=== PATIENT | female | born 1970 | race Caucasian/White ===

== ENCOUNTER 2020-11-24 10:54 | Emergency (ER) | payer OTHER, SELFPAY ==
[2020-11-24 10:55] VITALS: BP 171/84; PULSE 63; RESP 14; TEMP 36.5; O2SAT 99; BMI 22.3
--- NOTE | 2020-11-24 10:59 | ED_ITS ---
HPI - Extremity Injury (Upper) General Chief Complaint: Extremity Injury, Upper Stated Complaint: right hand crush injury Time Seen by Provider: 11/24/20 10:56 Source: patient and family Mode of arrival: Ambulatory Limitations: no limitations History of Present Illness HPI narrative: 49-year-old female nonsmoker with noncontributory medical history presents with a chief complaint of an accidental injury to her right index finger just prior to arrival. She was lowering a physical therapy table when her finger was caught in the closing mechanisms and crossed for approximately 10 minutes. She has decreased range of motion secondary to pain and some tingling on the distal tip of her finger which is improving since her injury. She denies any other injury and is otherwise well and free of complaint. She has increased pain with range of motion and improvement with rest. MD complaint: injury to: right and finger Onset (ago): minute(s) Other Extremity Injury: Right: fingers Other injuries: none Handedness: right Place: work Severity: mild Relieving factors: rest Exacerbating factors: movement of extremity Context: crush Associated symptoms: denies other symptoms Related Data Home Medications Medication Instructions Recorded Confirmed ALBUTEROL SULFATE (Ventolin / 0 ml INH * [place] DOSE/FREQUENCY #0 10/09/06 07/28/19 Proventil) FLUTIC/SALMET 500/50 MCG (Advair 0 INH * [place] DOSE/FREQUENCY #0 10/09/06 07/28/19 500-50 Diskus) Montelukast Sodium (Singulair) 0 PO * [place] DOSE/FREQUENCY #0 10/09/06 07/28/19 Previous Rx's Medication Instructions Recorded albuterol sulfate 90 mcg/actuation 2 puff INHALATION Q4-6H PRN #8 gram 07/28/19 aerosol inhaler fluticasone propionate 44 2 puff INHALATION BID #10.6 gram 07/28/19 mcg/actuation HFA aerosol inhaler Allergies Allergy/AdvReac Type Severity Reaction Status Date / Time shellfish derived Allergy Severe Anaphylaxis Verified 11/24/20 11:05 NSAIDS (Non-Steroidal Allergy Intermediate Wheezing Verified 11/24/20 11:05 Anti-Inflamma Review of Systems Constitutional Constitutional: Denies chills, Denies fatigue, Denies fever(s), Denies frequent falls, Denies lethargy and Denies weakness Eyes Eyes: Denies change in vision, Denies eye discharge, Denies irritation and Denies loss of vision ENT Ears, Nose, Mouth, and Throat: Denies change in voice, Denies dizziness, Denies neck pain, Denies sore throat and Denies throat swelling Cardiovascular Cardiovascular: Denies chest pain, Denies irregular heart rhythm, Denies lightheadedness, Denies palpitations, Denies dyspnea, Denies dyspnea on exertion and Denies orthopnea Respiratory Respiratory: Denies cough, Denies dyspnea, Denies dyspnea on exertion and Denies wheezing Gastrointestinal Gastrointestinal: Denies abdominal pain, Denies change in bowel habits, Denies diarrhea, Denies nausea and Denies vomiting Musculoskeletal Musculoskeletal: Reports arthralgias, Reports joint swelling, Denies neck pain and Denies numbness Integumentary/Breasts Skin/Breast: Denies pruritus, Denies erythema, Denies rash and Denies wounds Neurologic Neurologic: Denies behavioral changes, Denies confusion, Denies dizziness, Denies frequent falls, Denies loss of vision, Denies numbness and Denies weakness Psychiatric Psychiatric: Denies anxiety, Denies behavioral changes, Denies confusion, Denies depression, Denies homicidal ideation and Denies suicidal ideation Endocrine Endocrine: Denies fatigue, Denies flushing and Denies palpitations Hematologic/Lymphatic Hematologic/Lymphatic: Denies easy bruising Allergic/Immunologic Allergic/Immunologic: Denies urticaria, Denies throat swelling and Denies wheezing Patient History Social History Smoking Status: Never smoker Smoking Status: Never smoker Exam Narrative Exam Narrative: GEN: AOx3 and in mild distress EYES: Pupils are equal, round, and reactive to light and accommodation. Extraoccular muscles are intact bilaterally. There is no subconjunctival hemorrhage or exudate. CHEST: Lungs are clear to auscultation bilaterally and free of wheezes, rales, or rhonchi. Heart rate is regular rhythm, there are no murmurs, clicks, rubs, or gallops. There is no chest wall tenderness. ABD: Abdomen is soft and nontender. There is no guarding or rebound. Bowel sounds are normal in all 4 quadrants. There is no mass or organomegaly. EXT: Decreased range of motion of right index finger secondary to pain. There is swelling at the PIP. Cap refill less than 2 seconds, sensation intact but slightly decreased, no obvious deformity SKIN: Warm, pink, and dry. No erythema or rash Initial Vital Signs Initial Vital Signs: Vital Signs Temperature 97.7 F 11/24/20 10:55 Pulse Rate 63 11/24/20 10:55 Respiratory Rate 14 11/24/20 10:55 Blood Pressure 171/84 H 11/24/20 10:55 Pulse Oximetry 99 11/24/20 10:55 Procedures Orthopedic Splinting/Casting Injury #1: Side: right Upper Extremity Injury Location: finger Upper Extremity Immobilizer: aluminum form splint Post splinting neuro exam: intact Post splinting vascular exam: intact Placed by: Nursing Course Orders Ordered: ED Orders 11/24/20 11:05 XR finger RT min 2V Stat Vital Signs Vital signs: Vital Signs - 8 hr 11/24/20 10:55 Temperature 97.7 F Pulse Rate 63 Respiratory Rate 14 Blood Pressure 171/84 H Pulse Oximetry 99 MDM - Extremity Injury (Upper) Imaging Data Extremity x-ray #1: Radiologist's Impression: Chart Viewer Diagnostics DATE TYPE STATUS REF RANGE/AUTHOR Hx Today 11:05 Nirav SheehanKhushbu owusuJennifer M 49, F1970 [facility], Main ED 162.56cm 58.967kg BMI: 22.3kg/m? Extremity Injury, Upper Search Chart No Data to Display NonFormulary Not Included in Conflicts Anaphylaxis Wheezing ONSET Today 10:55 Jennifer Rendon 49 F [address] [id number] ReportSigned Patient: Jennifer Rendon MMR#: [id number]: 1970Acct:[id number]/Sex: 49 / FDate of Service: 11/24/20Loc: EDAccession Number: [id number] Procedure: XR finger RT min 2V Ordering Provider: Michael Harris D.O. PROCEDURE: XR FINGER RT MIN 2V INDICATIONS: finger crush injury TECHNIQUE: AP hand, 2 views of the 2nd finger(s) acquired. COMPARISON: None. FINDINGS: Bones: No fractures or dislocations. No suspicious bony lesions. Soft tissues: No suspicious soft tissue calcifications. IMPRESSION: Soft tissue swelling at the distal 2nd digit but no fracture found. No foreign body seen. Dictated by: Nirav Sheehan M.D. on 11/24/2020 at 11:53 Approved by: Nirav Sheehan M.D. on 11/24/2020 at 11:53 MDM Narrative Medical decision making narrative: Patient with crush injury and improving symptoms. There is no break in the skin,Xray is very reassuring and shows no fracture or dislocation. Patient has cap refill less than 2 seconds, sensation intact. No evidence of significant arterial or neuro injury. Reassuring exam. Extensive return precautions given and questions answered to her apparent satisfaction Discharge Plan Departure Patient Disposition: Home Clinical Impression: Crushing injury of finger of right hand Instructions: DI for Crush Injury Activity Restrictions/Additional Instructions: *You have been diagnosed with [crush injury to right index finger, exam and x- ray are very reassuring and there is no evidence of fracture or dislocation.] *What to do: *Please continue to take your regular medications as directed. [ ] New medication prescriptions sent to your pharmacy: [ ] [ ] New medication written as a paper prescription [ x] No new medications given *Please follow up with your primary care provider in 2-3 days, call for an appointment. Let them know you were seen in the Emergency Department and that we ask that you be seen in follow up. We will electronically transmit a record of today's note if your PCP is in our system *If you do not have a primary care provider please contact the [facility] Resource line at [phone]. They will ask some questions about your medical history and help get you set up with a doctor in the community. *Return to Emergency Department if you should have any new, worsening or concerning symptoms, such as [color change, mottling, decreased cap refill, significant increase in pain or other bothersome symptoms Prescriptions: No Action albuterol sulfate 90 mcg/actuation HFA aerosol inhaler 2 puff INHALATION Q4-6H PRN (Reason: shortness of breath or wheezing) Qty: 8 RF: 0 Flovent HFA 44 mcg/actuation HFA aerosol inhaler 2 puff INHALATION BID Qty: 10.6 RF: 0 ALBUTEROL SULFATE (Ventolin / Proventil) 0 ml INH * [place] DOSE/FREQUENCY Qty: 0 RF: 0 FLUTIC/SALMET 500/50 MCG (Advair 500-50 Diskus) 0 INH * [place] DOSE/FREQUENCY Qty: 0 RF: 0 Montelukast Sodium (Singulair) 0 PO * DOSE/FREQUENCY Qty: 0 RF: 0 Referrals: Conor Fitzgerald ARNP [Primary Care Provider] -
--- NOTE | 2020-11-24 11:05 | DI.RAD.S_ITS ---
PROCEDURE: XR FINGER RT MIN 2V INDICATIONS: finger crush injury TECHNIQUE: AP hand, 2 views of the 2nd finger(s) acquired. COMPARISON: None. FINDINGS: Bones: No fractures or dislocations. No suspicious bony lesions. Soft tissues: No suspicious soft tissue calcifications. IMPRESSION: Soft tissue swelling at the distal 2nd digit but no fracture found. No foreign body seen. Dictated by: Nirav Sheehan M.D. on 11/24/2020 at 11:53 Approved by: Nirav Sheehan M.D. on 11/24/2020 at 11:53
== END 2020-11-24 12:19 | disposition home or self-care (01) ==
PROVIDERS: Emergency Provider Emergency Medicine; PCP Registered Nurse
DX: S67.190A Crushing injury of right index finger, initial encounter (principal); X58.XXXA Exposure to other specified factors, initial encounter
CPT/HCPCS: 29130; 73140; 99283

== ENCOUNTER 2024-02-12 23:11 | Emergency (ER) | payer OTHER, SELFPAY ==
[2024-02-12 23:27] VITALS: BP 127/75; PULSE 64; RESP 14; TEMP 36.2; O2SAT 99; BMI 23.0
--- NOTE | 2024-02-12 23:43 | ED.FALL ---
HPI - Fall General Chief Complaint: Fall Stated Complaint: Fell down stairs, neck injury Time Seen by Provider: 02/12/24 23:21 Source: patient Mode of arrival: Ambulatory History of Present Illness HPI Narrative: Patient presents for 2 days of neck pain and stiffness. Was carrying a 50 lb bag of horse feed when she lost her balance and fell down several steps, suffering a whiplash injury to her neck. Has been taking Tylenol at home and doing physical therapy but is still having significant neck pain and tenderness. Denies numbness, weakness Related Data Home Medications Medication Instructions Recorded Confirmed ALBUTEROL SULFATE (Ventolin / 0 ml INH * UK DOSE/FREQUENCY ##0 10/09/06 07/28/19 Proventil) FLUTIC/SALMET 500/50 MCG (Advair 0 INH * [place] DOSE/FREQUENCY ##0 10/09/06 07/28/19 500-50 Diskus) Montelukast Sodium (Singulair) 0 PO * [place] DOSE/FREQUENCY ##0 10/09/06 07/28/19 Previous Rx's Medication Instructions Recorded albuterol sulfate 90 mcg/actuation 2 puff inhalation Q4-6H PRN 07/28/19 aerosol inhaler shortness of breath or wheezing #8 grams fluticasone propionate 44 2 puff inhalation BID Asthma #10.6 07/28/19 mcg/actuation HFA aerosol inhaler grams (Flovent HFA) Allergies Allergy/AdvReac Type Severity Reaction Status Date / Time shellfish derived Allergy Severe Anaphylaxis Verified 11/24/20 11:05 NSAIDS (Non-Steroidal Allergy Intermediate Wheezing Verified 11/24/20 11:05 Anti-Inflamma Patient History Social History Smoking Status: Never smoker Smoking Status: Never smoker alcohol intake frequency: 0-2 drinks per day Substance Use Type: does not use Exam Initial Vital Signs Initial Vital Signs: Vital Signs Temperature 97.2 F L 02/12/24 23:27 Pulse Rate 64 02/12/24 23:27 Respiratory Rate 14 02/12/24 23:27 Blood Pressure 127/75 02/12/24 23:27 Pulse Oximetry 99 02/12/24 23:27 Oxygen Delivery Method Room Air 02/12/24 23:27 Const: Awake, alert, no acute distress, nontoxic appearing Neck: Reduced range of motion due to pain. Tenderness to palpation along the midline MSK: Atraumatic, full range of motion Skin: Warm, Dry, intact, no rashes Neuro: AO x3, CN II-XII grossly intact, moves all extremities Course Orders Ordered: ED Orders 02/12/24 23:43 CT cervical spine wo con Stat Vital Signs Vital signs: Vital Signs - 8 hr 02/12/24 23:27 02/13/24 01:04 Temperature 97.2 F L 98.2 F Pulse Rate 64 65 Respiratory Rate 14 19 Blood Pressure 127/75 135/78 Pulse Oximetry 99 98 Oxygen Delivery Method Room Air Room Air MDM - Fall Imaging Data CT - cervical spine: Radiologist's Impression: PROCEDURE: CT CERVICAL SPINE WO CON INDICATIONS: MIDLINE NECK PAIN S/P FALL TECHNIQUE: Noncontrast 3 mm thick sections acquired from the skull base to the T4 level. Sagittal and coronal reformats were then constructed. For radiation dose reduction, the following was used: automated exposure control, adjustment of mA and/or kV according to patient size. COMPARISON: None. FINDINGS: Image quality: Excellent. Bones: No acute fractures or dislocations. Visualized superior ribs are intact. Soft tissues: Prevertebral soft tissues are normal in thickness. No paravertebral hematomas. No apical pneumothoraces. IMPRESSION: No acute displaced fracture or traumatic subluxation. Approved by: Rafat Mayo M.D. on 02/13/2024 at 0:32 MDM Narrative Medical decision making narrative: Neck pain and stiffness after whiplash injury. No neurologic symptoms. Since patient was having midline tenderness a CT was ordered, which did not show any acute fractures. 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 There were no acute fracture seen. Continue to take Tylenol as needed. Prescriptions: No Action albuterol sulfate 90 mcg/actuation HFA aerosol inhaler 2 puff INHALATION Q4-6H PRN (Reason: shortness of breath or wheezing) Qty: 8 0RF Flovent HFA 44 mcg/actuation HFA aerosol inhaler 2 puff INHALATION BID Qty: 10.6 0RF ALBUTEROL SULFATE (Ventolin / Proventil) 0 ml INH * UK DOSE/FREQUENCY Qty: 0 FLUTIC/SALMET 500/50 MCG (Advair 500-50 Diskus) 0 INH * [place] DOSE/FREQUENCY Qty: 0 Montelukast Sodium (Singulair) 0 PO * [place] DOSE/FREQUENCY Qty: 0 Referrals: Conor Fitzgerald ARNP [Primary Care Provider] - Stand Alone Forms: Patient Portal/API
[2024-02-13 01:04] VITALS: BP 135/78; PULSE 65; RESP 19; TEMP 36.8; O2SAT 98
== END 2024-02-13 01:05 | disposition home or self-care (01) ==
PROVIDERS: Emergency Provider Emergency Medicine; PCP Registered Nurse
DX: S13.4XXA Sprain of ligaments of cervical spine, initial encounter (principal); W10.9XXA Fall (on) (from) unspecified stairs and steps, initial encounter
CPT/HCPCS: 72125; 99281; 99284

== ENCOUNTER → 2024-12-18 15:11 | Outpatient (CLI) | payer OTHER, SELFPAY ==
--- NOTE | 2024-12-18 15:18 | DI.RAD.S_ITS ---
PROCEDURE: XR CERVICAL SPINE 3V INDICATIONS: NECK / BACK PAIN TECHNIQUE: 3 views of the cervical spine were acquired. COMPARISON: None. FINDINGS: Mild straightening of the normal cervical lordosis on the lateral image. Mild degenerative changes with mild disc space narrowing, osteophytes, uncovertebral and facet hypertrophic changes most notably at C4-5, C5-6. No radiographic evidence of fracture, subluxation or abnormal prevertebral soft tissue swelling . IMPRESSION: Mild degenerative changes. If symptoms persist or worsen, or there is high clinical suspicion of cervical abnormality, MRI could be performed. Dictated by: Andrew Rock M.D. on 12/19/2024 at 16:11 Approved by: Andrew Rock M.D. on 12/19/2024 at 16:14
== END ==
PROVIDERS: PCP Registered Nurse; Referring Provider Registered Nurse; Visit Provider Registered Nurse
DX: M54.12 Radiculopathy, cervical region (principal)
CPT/HCPCS: 72040

== ENCOUNTER → 2024-12-20 15:44 | Outpatient (CLI) | payer OTHER, SELFPAY ==
--- NOTE | 2024-12-20 15:45 | DI.MRI.S_ITS ---
PROCEDURE: MR CERVICAL SPINE WO CON INDICATIONS: CERVICAL RADIULOPATHY TECHNIQUE: Noncontrast sagittal T1 spin echo and T2 fast spin echo, sagittal STIR, foraminal oblique sagittal T2 fast spin echo, and axial gradient echo or T2 fast spin echo through the cervical spine. COMPARISON: CT dated 02/13/2024 FINDINGS: Image quality: Excellent. Alignment and Curvature: There is normal bony alignment. Bone Marrow: Marrow demonstrates normal overall signal. Spinal Cord: Visualized spinal cord has normal size and signal. No cerebellar tonsillar herniation. Paraspinous Soft Tissues: No paravertebral masses. Prevertebral soft tissues are normal in thickness. C2-C3: Normal appearance. C3-C4: Normal appearance. C4-C5: Normal appearance. C5-C6: Normal appearance. C6-C7: Normal appearance. C7-T1: Normal appearance. IMPRESSION: Unremarkable examination. Dictated by: Jorje Quispe M.D. on 12/20/2024 at 20:50 Approved by: Jorje Quispe M.D. on 12/20/2024 at 20:55
== END ==
PROVIDERS: PCP Registered Nurse; Referring Provider Registered Nurse; Visit Provider Registered Nurse
DX: M54.12 Radiculopathy, cervical region (principal)
CPT/HCPCS: 72141